=== PATIENT | male | born 1975 | race American Indian/Alaskan Native ===

== ENCOUNTER 2016-08-09 09:46 | Emergency (ER) | payer BC | END 2016-08-09 10:30 | LOC: ED 10:29 | DX: R53.1 Weakness (principal); Z53.21 Procedure and treatment not carried out due to patient leaving prior to being seen by health care provider ==

== ENCOUNTER 2017-03-25 18:39 | Emergency (ER) | payer SELFPAY ==
[~2017-03-25] VITALS: Ht 182.9 cm; Wt 70.0 kg
[2017-03-25 18:53] VITALS: BP 167/86
[2017-03-25] MEDS ORDERED: PLEASE ENTER HEIGHT AND WEIGHT MC SCH (19:00)
[2017-03-25] MEDS ORDERED: METHOCARBAMOL 750 MG TABLET PO ONE (19:00)
[2017-03-25] MEDS ORDERED: IBUPROFEN 200 MG TABLET PO ONE (19:00)
[2017-03-25] MEDS ORDERED: IBUPROFEN 200 MG TABLET ONE (19:20)
[2017-03-25] MEDS ORDERED: METHOCARBAMOL 750 MG TABLET ONE (19:20)
== END 2017-03-25 19:26 | disposition home or self-care (01) ==
LOC: ED 19:15
DX: S33.5XXA Sprain of ligaments of lumbar spine, initial encounter (principal); V49.19XA Passenger injured in collision with other motor vehicles in nontraffic accident, initial encounter; Y93.89 Activity, other specified; Y99.8 Other external cause status; Y92.410 Unspecified street and highway as the place of occurrence of the external cause
CPT/HCPCS: 99283

== ENCOUNTER 2017-03-28 14:17 | Emergency (ER) | payer OTHER ==
[~2017-03-28] VITALS: Ht 182.9 cm; Wt 68.2 kg
[2017-03-28] MEDS ORDERED: LORazepam 1MG TABLET PO ONE (15:00)
[2017-03-28] MEDS ORDERED: HYDROcodone/APAP 5/325 TABLET PO ONE (15:00)
[2017-03-28] MEDS ORDERED: LORazepam 1MG TABLET ONE (15:15)
[2017-03-28] MEDS ORDERED: HYDROcodone/APAP 5/325 TABLET ONE (15:16)
[2017-03-28 17:18] VITALS: BP 119/87
== END 2017-03-28 17:20 | disposition home or self-care (01) ==
LOC: ED 16:55
DX: M54.5 Low back pain (principal); F41.1 Generalized anxiety disorder; F17.200 Nicotine dependence, unspecified, uncomplicated
CPT/HCPCS: 72131; 99284